=== PATIENT | male | born 1955 | race Two or more races ===

== ENCOUNTER 2019-05-08 16:41 | Outpatient (CLI) | END 2019-05-08 16:42 | disposition home or self-care (01) | LOC: LAB 16:41 | PROVIDERS: ATTEND Family Medicine | DX: R00.2 Palpitations (principal); R60.9 Edema, unspecified; E79.0 Hyperuricemia without signs of inflammatory arthritis and tophaceous disease; Z12.5 Encounter for screening for malignant neoplasm of prostate | CPT/HCPCS: 36415; 80053; 84443; 84550; 85025 ==